=== PATIENT | male | born 1990 | race African-American/Black ===

== ENCOUNTER 2018-12-21 16:41 | Emergency (ER) | payer MEDICAID, OTHER ==
[~2018-12-21] VITALS: Ht 180.3 cm; Wt 83.9 kg
[~2018-12-21 16:41] MED LIST: DEPER500 PO; DIVA250E1 PO; OLAN10TA PO
[2018-12-21 16:44] VITALS: BP 144/97
--- NOTE | 2018-12-21 16:46 | NUR ---
PT SENT TO LOBBY TO WAIT FOR AVAILABLE BED.
--- NOTE | 2018-12-21 16:59 | NUR ---
PT AMBUALTED TO ER BED 12
--- NOTE | 2018-12-21 17:02 | NUR ---
28Y/M BIB SELF WITH C/O CHEST PAIN, MIDSTERNAL, NON RADIATING, 06/21, PT STATES HOMELESSNESS, PT SITTING ON GURNEY LOOKING AT PHONE IN NO DISTRESS, PT IS AAOX4, VSS, BED DOWN, BEDRAIL UP X 1, ER MD AWARE AND NOTIFIED OF PT STATUS. HX GERD, ANXIETY
[2018-12-21 17:27] VITALS: BP 144/97
--- NOTE | 2018-12-21 17:27 | NUR ---
Patient does not wish to proceed with medical care recommended by [facility]TM[facility]. Patient given information related to possible complications, up to and including , which could occur as a result of leaving hospital at this time. Patient verbalizes understanding of risks involved leaving against medical advice. Patient has signed AMA form.
== END 2018-12-21 17:27 | disposition left against medical advice (07) ==
LOC: MED 16:41
DX: R07.9 Chest pain, unspecified (principal); J45.909 Unspecified asthma, uncomplicated; F41.9 Anxiety disorder, unspecified; K21.9 Gastro-esophageal reflux disease without esophagitis; Z79.899 Other long term (current) drug therapy
CPT/HCPCS: 99281

== ENCOUNTER 2019-06-25 02:02 | Emergency (ER) | payer MEDICAID, OTHER ==
[~2019-06-25] VITALS: Ht 177.8 cm; Wt 125.2 kg
[2019-06-25 02:18] VITALS: BP 143/69
--- NOTE | 2019-06-25 02:31 | NUR ---
PT TRIAGED, SENT BACK TO LOBBY AWAITING FOR BED.
--- NOTE | 2019-06-25 03:29 | NUR ---
PT AMBULATORY TO BED
[2019-06-25] MEDS ORDERED: KETOROLAC 30 MG/ML VIAL IM ONE (04:00)
--- NOTE | 2019-06-25 04:10 | NUR ---
C/O BL ANKLE PAIN, X1 DAY S/P WALKING 10 MILES FROM [facility] [place] . NO OBVIOUS DEFORMITY OR SWELLING. REPORTS CONGESTION AND NON-PRODUCTIVE COUGH, X1 MONTH. LUNGS CLEAR BILATERALLY. PT HOMELESS, WILL PROVIDE RESOURCES. [id number]. BED IS DOWN, LOCKED, BED RAIL X 1, ERMD TO SEE PT. DENIES MED HX OR RX.
--- NOTE | 2019-06-25 04:19 | NUR ---
PT SLEEPING. PT WOKEN UP FOR TORADOL IM. PT TOLERATED WELL
--- NOTE | 2019-06-25 04:47 | NUR ---
RAD AT BEDSIDE
[2019-06-25 05:53] VITALS: BP 131/74
--- NOTE | 2019-06-25 05:53 | NUR ---
Patient discharged with v/s stable. Written and verbal after care instructions given and explained. Patient alert, oriented and verbalized understanding of instructions. Ambulatory with steady gait. All questions addressed prior to discharge. ID band removed. Patient advised to follow up with PMD. Rx of CESAR SEALS given. Patient educated on indication of medication including possible reaction and side effects. Opportunity to ask questions provided and answered. PT GIVEN HALF-WAY RESOURCE PACKET, MEAL, HYGIENE PACKET, AND HAS SIGNED WAIVER
== END 2019-06-25 05:53 | disposition home or self-care (01) ==
LOC: MED 02:02
DX: M25.572 Pain in left ankle and joints of left foot (principal); R05 Cough; R06.02 Shortness of breath; J45.909 Unspecified asthma, uncomplicated; Z79.899 Other long term (current) drug therapy; X50.1XXA Overexertion from prolonged static or awkward postures, initial encounter; Y93.01 Activity, walking, marching and hiking; Y92.89 Other specified places as the place of occurrence of the external cause; Y99.8 Other external cause status
CPT/HCPCS: 71045; 73610; 96372; 99283; J1885; Q0092